=== PATIENT | female | born 1970 | race Caucasian/White ===

== ENCOUNTER 2018-04-10 00:38 | Emergency (ER) | payer OTHER ==
[~2018-04-10] VITALS: Ht 162.6 cm; Wt 75.0 kg
[2018-04-10] MEDS ORDERED: ONDANSETRON HCL 4MG/2ML INJ IV STA (02:17)
[2018-04-10] MEDS ORDERED: KETOROLAC 30MG/ML VIAL IV STA (02:17)
[2018-04-10] MEDS ORDERED: SODIUM CHLORIDE 0.9% 1,000 ML IV ONE (02:17)
[2018-04-10 02:48] LABS: CHLORIDE 103 mEq/L (98-107)
[2018-04-10 02:59] LABS: BASOPHILS % 0.5 % (0.0-2.0); EOSINOPHILS % 1.2 % (0.0-5.0); HEMOGLOBIN. 13.7 g/dL (12.0-16.0); LYMPHOCYTES % 10.7 % (20.0-50.0); MEAN CORPUSCULAR HEMOGLOBIN 31.1 pg (28.0-32.0); MEAN CORPUSCULAR VOLUME 93.4 fL (81.0-99.0); MEAN PLATELET VOLUME 10.3 fl (7.4-10.4); MONOCYTES % 8.2 % (2.0-8.0); NEUTROPHILS % 79.4 % (40.0-76.0); PLATELET 253 x1000/uL (130-400); RED BLOOD CELL COUNT 4.39 mill/uL (4.2-5.4); RED CELL DISTRIBUTION WIDTH 13.3 % (11.6-14.6)
[2018-04-10 03:02] LABS: CLARITY URINE CLOUDY (CLEAR); COLOR URINE YELLOW (YELLOW); KETONES URINE TRACE (NEGATIVE); LEUKOCYTE ESTERASE URINE NEGATIVE (NEGATIVE); NITRITE URINE NEGATIVE (NEGATIVE); OCCULT BLOOD URINE NEGATIVE (NEGATIVE); PH URINE 6.5 (4.5-8.0); PROTEIN URINE NEGATIVE (NEGATIVE); SPECIFIC GRAVITY URINE 1.019 (1.005-1.030)
[2018-04-10 07:06] VITALS: BP 96/62
== END 2018-04-10 07:12 | disposition home or self-care (01) ==
LOC: ER 00:38
DX: R10.11 Right upper quadrant pain (principal); N39.0 Urinary tract infection, site not specified; R03.0 Elevated blood-pressure reading, without diagnosis of hypertension; F17.210 Nicotine dependence, cigarettes, uncomplicated
CPT/HCPCS: 36415; 76700; 80053; 81003; 81025; 83690; 85025; 96374; 96375; 99284; J1885; J2405; J7030

== ENCOUNTER 2019-07-12 06:49 | Emergency (ER) | payer MEDICARE, OTHER ==
[~2019-07-12] VITALS: Ht 162.6 cm; Wt 64.0 kg
[2019-07-12 07:16] VITALS: BP 155/82
== END 2019-07-12 07:43 | disposition home or self-care (01) ==
LOC: ER 06:49
DX: H60.92 Unspecified otitis externa, left ear (principal)
CPT/HCPCS: 99283